=== PATIENT | female | born 1950 | race Caucasian/White ===

== ENCOUNTER 2024-01-13 08:26 | Day surgery (SDC) | payer OTHER, SELFPAY ==
[2024-01-09 13:36] VITALS: BMI 23.9
--- NOTE | 2024-01-12 16:02 | P.CONAN_ITS ---
HPI - Anesthesia Eval Consult details Narrative: 72yo F for Colonoscopy [facility] Past Medical History Medical History (Updated 01/12/24 @ 11:01 by Gisele Rivera, RN) Impaired fasting glucose Anal fistula Hx of Crohn's disease HTN (hypertension) Hyperlipidemia Surgical History Surgical History (Updated 01/09/24 @ 13:29 by Loan Blackmon RN) History of right hip replacement H/O ovarian cystectomy Hx of tonsillectomy H/O colonoscopy Meds Allergies Allergy/AdvReac Type Severity Reaction Status Date / Time No Known Allergies Allergy Verified 01/09/24 13:29 Home Medications ?Medication ?Instructions ?Recorded ?Confirmed ?Last Taken ?Type albuterol sulfate 90 mcg/actuation 1 inh inhalation QID PRN Shortness 01/09/24 01/09/24 Unknown History aerosol inhaler Of Breath Or Wheezing rhodes flavor (bulk) ea PO 01/09/24 Unknown History cyanocobalamin (vitamin B-12) 1,000 mcg PO DAILY 01/09/24 01/09/24 Unknown History 1,000 mcg tablet (Vitamin B-12) hydrochlorothiazide 25 mg tablet 25 mg PO DAILY 01/09/24 01/09/24 Unknown Histo ry metoprolol succinate 100 mg 100 mg PO DAILY 01/09/24 01/09/24 Unknown History tablet,extended release 24 hr ondansetron 4 mg disintegrating 4 mg PO Q8H PRN Nausea And Vomiting 01/09/24 Unknown History tablet simvastatin 10 mg tablet 10 mg PO DAILY 01/09/24 01/09/24 Unknown History Exam Height,Weight and Vital Signs: Height 5 ft 4 in Weight 63.049 kg Assessment and Plan Assessment Anesthesia Assessment: Chart Reviewed
[2024-01-13 08:58] VITALS: BMI 23.8
[2024-01-13] MEDS: Lactated Ringers 1,000 ML 100 ML IVCONT (09:03)
[2024-01-13 09:15] VITALS: BP 114/96; PULSE 58; RESP 18; TEMP 36.7; O2SAT 100
--- NOTE | 2024-01-13 10:30 | P.HPSUR_ITS ---
Pre-Procedural Eval Section A - 24 Hr Update-Section A only Date of Service: 01/13/24 Section B - Complete if H&P > 30 days Chief Complaint: Crohn's disease of large intestine with fistula Details of Present Illness: see H^&P no changes Relevant Family History (Specify if Yes): No Relevant Social History: None Present Medications: see Short Stay Collaborative assessment Medical History: No relevant PMH History of Previous Operations: No relevant previous surgery Allergies: Allergies Allergy/AdvReac Type Severity Reaction Status Date / Time No Known Allergies Allergy Verified 01/13/24 09:10 Review of Systems Sugical H&P ROS: Negative: Constitution, Cardiovascular, Respiratory, Neurological, Psychiatric, Hem-Onc, Allergic/Immunologic, Gastrointestinal, Genitourinary, Musculoskeletal, Integumentary, Endocrine and Eyes/Ears/Nos e/Throat Exam Surgical H&P Exam: Normal: HEENT, Normal: Heart, Normal: Lungs, Normal: Extremities, Normal: Abdomen, Normal: Skin and Normal: Neurological Plan Diagnosis/Plan: Unchanged I have reviewed the history and physical and performed a pertinent physical examination on my patient. No changes have occurred unless specified. Time Spent With Patient Time: Total time managing care of this patient today ____ minutes.
[2024-01-13 11:25] VITALS: BP 115/53; PULSE 64; RESP 18; TEMP 36.6; O2SAT 99
[2024-01-13 11:40] VITALS: BP 121/61; PULSE 60; RESP 18; TEMP 36.5; O2SAT 100
--- NOTE | 2024-01-13 13:01 | OP_ITS ---
DATE OF SERVICE: 01/13/2024 SURGEON: Maurice Pagan MD INDICATIONS: Crohn disease. PREOPERATIVE DIAGNOSIS: POSTOPERATIVE DIAGNOSIS: PROCEDURE PERFORMED: Colonoscopy to the terminal ileum with biopsy. ESTIMATED BLOOD LOSS: COMPLICATIONS: ANESTHESIA: Monitored anesthesia care. ASSISTANTS: SPECIMENS: DESCRIPTION OF PROCEDURE: A history and physical was performed. The risks and benefits of the procedure were explained to the patient. Informed consent was obtained. The patient was placed in the left lateral decubitus position. A digital rectal exam was performed and was found to be normal. The Olympus pediatric video colonoscope was introduced into the rectum and advanced to the cecum. The cecum was identified by transillumination, palpation, and identification of ileocecal valve. Examination was performed. The scope was removed. She tolerated the procedure well and was returned to the recovery area in stable condition. FINDINGS: The terminal ileum was examined and appeared normal. The visualized colonic mucosa was normal. The quality of the prep was good. There was evidence of inactive Crohn disease beginning in the cecum and extending to the mid descending colon. Changes included scarring and pseudopolyp formation. There did not appear to be any active colitis endoscopically. There was sigmoid diverticulosis. Biopsies were obtained from the terminal ileum and from throughout the colon. Retroflexed examination showed a small opening from an anal fistula internally near the anal sphincter. No external fistula was identified. Retroflexed examination was otherwise normal. IMPRESSION: Crohn disease involving the colon with fistula formation. RECOMMENDATION: Follow up the biopsy results. MD CRISTIANE Vaughan/ARYA / [id number]
== END 2024-01-13 12:21 | disposition home or self-care (01) ==
PROVIDERS: PCP Internal Medicine; Visit Provider Internal Medicine Gastroenterology
PROC: 0DJD8ZZ Inspection of Lower Intestinal Tract, Via Natural or Artificial Opening Endoscopic (ICD-10-PCS; CPT 45378; principal; 2024-01-13 10:10)
DX: Z12.11 Encounter for screening for malignant neoplasm of colon (principal); K50.113 Crohn's disease of large intestine with fistula; I10 Essential (primary) hypertension; E78.5 Hyperlipidemia, unspecified; G20.A1 Parkinson's disease without dyskinesia, without mention of fluctuations; Z87.891 Personal history of nicotine dependence; K57.30 Diverticulosis of large intestine without perforation or abscess without bleeding
CPT/HCPCS: 45380; 88305; J2704